=== PATIENT | male | born 1995 | race African-American/Black ===

== ENCOUNTER 2024-02-03 10:24 | Emergency (ER) | payer BC, SELFPAY ==
[2024-02-03 10:26] VITALS: BP 130/79; PULSE 72; RESP 16; TEMP 36.8; O2SAT 99; BMI 28.8
--- NOTE | 2024-02-03 10:36 | EDS_ITS ---
HPI History of Present Illness Chief Complaint: Cold Sx PFSH PFSH Medical History no medical history Allergy/AdvReac Type Severity Reaction Status Date / Time No Known Allergies Allergy Verified 02/03/24 10:24 Family History no significant family his Surgical History no surgical history Social History Smoking Status: Current every day smoker tobacco type: cigarettes EXAM Physical Exam Const Vital Signs: 02/03/24 10:26 Temperature 98.2 F Temperature Source Oral Pulse Rate 72 Respiratory Rate 16 Blood Pressure 130/79 H Blood Pressure Mean 96 Pulse Ox 99 Oxygen Delivery Method Room Air [facility] [place] Narrative Medical decision making narrative: HISTORY OF PRESENT ILLNESS: 28-year-old male presents with fever. Notes he had a fever at home. States he never checked temperature spot high. REVIEW OF SYSTEMS: Pertinent positives: [] Pertinent negatives: Chest pain, shortness of breath, syncope PHYSICAL EXAM: Nursing triage notes reviewed, Vital signs reviewed Constitutional: please see mdm HENT: MMM Eyes: Pupils equal round and reactive to light, Extraocular muscles intact Neck: No stridor, no JVD, full neck ROM Lungs: Clear to auscultation, No wheezing or rales. No increased work of breathing, no conversational dyspnea, no accessory muscle use, no nasal flaring. No respiratory distress noted Heart: Regular rate and rhythm, No murmurs, No rubs and No gallops, 2+ distal pulses (radial, femoral, posterior tibial) in all extremities Abdomen: Soft, there is no tenderness, rigidity, rebound or guarding, no obvious peritoneal signs, no palpable pulsatile abdominal masses, no auscultated abdominal bruit : No CVAT Extremities: No edema Neuro: No new focal neurological deficits, cranial nerves II through XII intact, 5/5 strength in all present extremities. Intact sensation to light touch in all present extremities, 2+ reflexes bilateral patella tendons. Skin: No rash or lesions noted MEDICAL DECISION MAKING: Chief Complaint: Fever External records reviewed: None Factors affecting care: none Social determinants of health: none History obtained from others: none Consults: none [facility] Narrative: The patient was hemodynamically stable, afebrile and nontoxic-appearing. Exam was unremarkable. Lungs were clear. The patient no distress. He is not hypoxic. He had no increased work of breathing. I considered the following differential diagnosis: Viral URI, pneumonia Considered pneumonia I think this is less likely given lack of fever, hypoxia no focal lung findings. Likely some from viral URI. He was instructed take Tylenol and ibuprofen. Instructed to drink plenty of oral electrolyte containing fluids. Instructed to follow with his primary care physician for further outpatient evaluation and treatment. The patient and/or family, caregivers express understanding. The patient and/or family, caregivers agrees with the plan. Shared decision making: I will have a discussion with the patient and or visitors regarding risk/benefits of further testing or admission. They will be made aware of of the risk/benefits inherent in this decision they will be given the opportunity to voice understanding. Total critical care time today provided was at least 0 minutes. This excludes separately billable procedures. Critical care time (if documented) is secondary to the patient having high probability of clinically significant/life threatening deterioration in the patient's condition which required my urgent intervention. Impression: 1. Viral URI 2. Fever Dispo: Discharge This note was generated with [employer] dictation software. It may contain incorrect words, spelling, and punctuation that were not noted in review of the chart prior to signing. Discharge Plan Triage Chief Complaint: Cold Sx ED Provider: Ahsan Griffiths Dx/Rx/DC Orders Print Language: Croatian
== END 2024-02-03 11:16 | disposition home or self-care (01) ==
LOC: ED 11:00
PROVIDERS: Emergency Provider Emergency Medicine; Visit Provider Emergency Medicine
DX: J06.9 Acute upper respiratory infection, unspecified (principal); F17.210 Nicotine dependence, cigarettes, uncomplicated; R50.9 Fever, unspecified
CPT/HCPCS: 99282